=== PATIENT | female | born 1955 | race Asian ===

== ENCOUNTER 2016-12-16 05:08 | Emergency (ER) | payer OTHER ==
[~2016-12-16] VITALS: Ht 165.1 cm; Wt 54.5 kg
[2016-12-16 06:00] LABS: HEMATOCRIT 38.4 % (36.0-46.0); MCH 30.8 PG (29.0-34.0); MCHC 33.9 G/DL (30.0-36.0); MEAN PLAT.VOLUME 9.2 uM^3 (9.5-12.4); PLATELET COUNT 209 K/uL (156-360); RBC DIS.WIDTH-CV 13.4 % (11.8-14.6); RBC DIS.WIDTH-SD 44.1 % (39-53); RED BLOOD COUNT 4.22 M/uL (3.80-5.20); WHITE BLOOD COUNT 6.7 K/uL (4.1-10.2)
[2016-12-16 06:08] LABS: ADD MIUA? NO; BILIRUBIN NEGATIVE; BLOOD NEGATIVE; COLOR STRAW ((YELLOW)); GLUCOSE (STRIP) NEGATIVE; KETONES 20; LEUKOCYTES NEGATIVE; NITRITE NEGATIVE; PROTEIN (STRIP) 30; UCUL ADDED? NO; UROBILINOGEN 0.2 MG/DL (0.2-1.0)
[2016-12-16 06:13] LABS: CHLORIDE 105 mEq/L (99-109); POTASSIUM 3.4 mEq/L (3.7-5.4); SODIUM 135 mEq/L (136-147)
[2016-12-16 06:16] LABS: GLUCOSE 172 mg/dL (70-99)
[2016-12-16 06:17] LABS: ANION GAP 13 MEQ/L (2-14)
[2016-12-16 06:18] LABS: TOTAL BILIRUBIN 1.2 mg/dL (0.0-1.0)
[2016-12-16 06:19] LABS: ALKALINE PHOSPHATASE 79 IU/L (3-129)
[2016-12-16 06:20] LABS: UREA NITROGEN (BUN) 13 mg/dL (9-23)
[2016-12-16 06:29] LABS: GFR ESTIMATE (CALCULATED) > 59 mL/min/
[2016-12-16] MEDS ORDERED: BONINE25 MG PO (08:37)
[2016-12-16] MEDS ORDERED: ESCITALOPRAM OX10 MG PO (08:46)
[2016-12-16 08:55] VITALS: BP 120/65
== END 2016-12-16 08:56 | disposition home or self-care (01) ==
LOC: EME 05:08
DX: H81.10 Benign paroxysmal vertigo, unspecified ear (principal); R11.2 Nausea with vomiting, unspecified
CPT/HCPCS: 70450; 80053; 81003; 85027; 93005; 99281; 99285; J2405; J7030